=== PATIENT | female | born 1955 | race Caucasian/White ===

== ENCOUNTER 2021-05-07 08:32 | Outpatient (CLI) | payer MEDICARE, OTHER, SELFPAY ==
--- NOTE | ~2021-05-07 | DEXA_ITS ---
Bone Density Report Name: Fabiola Lee Age: 65 Sex: Female Ethnicity: White Date of : 1955 Indication: postmenopausal; height loss; Referring Provider: BENNIE, TAY Sanchez Study: Bone densitometry was performed. Exam Date: May 07, 2021 Accession number: [id number] Bone Density: Region BMD T-score Z-score Classification AP Spine (L1-L4) 0.984 -0.6 1.3 Normal Femoral Neck (Left) 0.660 -1.7 -0.1 Osteopenia Total Hip (Left) 0.814 -1.0 0.3 Normal Total Hip Bilateral Avg 0.818 -1.0 0.3 Osteopenia Femoral Neck (Right) 0.670 -1.6 0.0 Osteopenia Total Hip (Right) 0.821 -1.0 0.3 Normal World Health Organization criteria for BMD impression classify patients as: Normal (T-score at or above -1.0), Osteopenia (T-score between -1.0 and -2.5), or Osteoporosis (T-score at or below -2.5). 10-year Fracture Risk(1): Major Osteoporotic Fracture 9.4% Hip Fracture 1.2% Reported Risk Factors: [place] (), Neck BMD=0.670, BMI=28.3 (1) FRAX(R) Version 3.08. Fracture probability calculated for an untreated patient. Fracture probability may be lower if the patient has received treatment. Clinical Information Provided by Patient: Has used the following medications: Vitamin D Patient maximum height was 64 Menopause Age: 49 Drinks caffeinated beverages Onset of menses at age 9 Number of children 2 Impression: The patient has low bone mass, based on the Left Femoral Neck T-score. The patient has an estimated ten-year risk of hip fracture of 1.2% and an estimated ten-year risk of major fracture of 9.4%, based on the WHO FRAX algorithm. Discussion: BONE DENSITY IS LOW AT ONE OR MORE SKELETAL SITES. This patient's lowest T-score is low at one or more skeletal sites. It meets the World Health Organization's (WHO) criteria for ?low bone mass? (T-score between -1.0 and -2.5). The patient's 10-year risk of fracture as calculated by FRAX is less than the threshold where pharmacological therapy is recommended by the National Osteoporosis Foundation (NOF). However, all treatment decisions require clinical judgment and consideration of individual patient factors, including patient preferences, comorbidities, previous drug use, risk factors not captured in the FRAX model (e.g., frailty, falls, vitamin D deficiency, increased bone turnover, interval significant decline in bone density) and possible under or overestimation of fracture risk by FRAX. The patient should follow a healthful lifestyle (good nutrition with adequate calcium and vitamin D, and appropriate weight-bearing exercise). Follow-Up: Consider repeating this study in 2 to 3 years to reassess this patient's status, or sooner if there is some new clinical indication. Reported by: YAYO on 05/07/2021 8:57:00 AM.
== END 2021-05-07 08:33 | disposition home or self-care (01) ==
LOC: ANHIMG 08:37
PROVIDERS: PCP Family Medicine; Visit Provider Family Medicine
DX: Z78.0 Asymptomatic menopausal state (principal); M85.89 Other specified disorders of bone density and structure, multiple sites
CPT/HCPCS: 77080

== ENCOUNTER 2021-05-08 09:04 | Outpatient (CLI) | payer MEDICARE, OTHER, SELFPAY ==
--- NOTE | ~2021-05-08 | XR_ITS ---
EXAMINATION: XR lumbar spine 2-3V DATE: 05/08/2021 09:27 INDICATION: Low back pain TECHNIQUE: Anteroposterior and lateral views of the lumbar spine, and cone-down lateral view of the l umbosacral junction were obtained. COMPARISON: None. FINDINGS: There is lumbar levocurvature. There are 2 mm of retrolisthesis of L3 on L4 and 2 mm of ant erolisthesis of L4 on L5. The vertebral body heights are maintained. There is moderate loss of interv ertebral disc space height at L2-3 and L3-4 and mild intervertebral disc space loss throughout the re mainder of the lumbar spine. There is moderate facet osteoarthritis at L4-5 and L5-S1. No fracture is identified. Calcified atherosclerosis is noted. IMPRESSION: 1. Moderate lumbar spondylosis without acute findings. Reviewed, dictated and finalized at location B.
== END 2021-05-08 09:05 | disposition home or self-care (01) ==
LOC: ANHIMG 09:10
PROVIDERS: PCP Family Medicine; Visit Provider Family Medicine
DX: M54.5 Low back pain (principal); M47.816 Spondylosis without myelopathy or radiculopathy, lumbar region
CPT/HCPCS: 72100

== ENCOUNTER 2021-05-14 14:25 | Outpatient (CLI) | payer MEDICARE, OTHER, SELFPAY ==
--- NOTE | ~2021-05-14 | MM_ITS ---
EXAMINATION: MM screening tani BI w kristian HISTORY: Baseline screening mammogram TECHNIQUE: Craniocaudal and mediolateral oblique 3-D tomosynthesis images were obtained and synthetic 2-D images were generated. CAD analysis was submitted and interpreted. COMPARISON: None, baseline BREAST PARENCHYMAL COMPOSITION: There are scattered areas of fibroglandular density. FINDINGS: There is no evidence of suspicious mass, calcification, or architectural distortion to sugg est malignancy in either breast. IMPRESSION: 1. No mammographic evidence of malignancy. 2. Recommend routine screening mammography in one year. BI-RADS Category 1: Negative Reviewed, dictated and finalized at location A.
== END 2021-05-14 14:26 | disposition home or self-care (01) ==
LOC: ANHIMG 14:29
PROVIDERS: PCP Family Medicine; Visit Provider Family Medicine
DX: Z12.31 Encounter for screening mammogram for malignant neoplasm of breast (principal)
CPT/HCPCS: 77063; 77067

== ENCOUNTER 2022-06-19 11:28 | Outpatient (CLI) | payer MEDICARE, OTHER, SELFPAY ==
--- NOTE | ~2022-06-19 | XR_ITS ---
XR knee LT 3V 06/19/2022 11:59 Indication: Left knee pain Procedure: 3 views left knee Comparison: No prior studies for comparison. Findings: Moderate-severe tricompartment osteoarthritis of the left knee. No fracture, subluxation or dislocation. No significant joint effusion. No foreign bodies. Impression: 1: Moderate-severe osteoarthritis of the left knee. Reviewed, dictated and finalized at location A. Impression: 1: Moderate-severe osteoarthritis of the left knee.
--- NOTE | ~2022-06-19 | XR_ITS ---
XR knee RT 3V 06/19/2022 11:59 Indication: Right knee pain Procedure: 3 views right knee Comparison: No prior studies for comparison. Findings: Moderate tricompartment osteoarthritis of the right knee. No fracture, subluxation or dislo cation. No significant joint effusion. No foreign bodies. Impression: 1: Moderate tricompartment osteoarthritis of the right knee. Reviewed, dictated and finalized at location A. Impression: 1: Moderate tricompartment osteoarthritis of the right knee.
== END 2022-06-19 11:29 | disposition home or self-care (01) ==
PROVIDERS: PCP Family Medicine; Visit Provider Family Medicine
DX: M17.0 Bilateral primary osteoarthritis of knee (principal)
CPT/HCPCS: 73562

== ENCOUNTER → 2022-06-19 15:29 | Outpatient (CLI) | payer MEDICARE, OTHER, SELFPAY ==
--- NOTE | ~2022-06-19 | MR_ITS ---
EXAMINATION: MR lumbar spine wo con DATE: 06/19/2022 16:02 INDICATION: Degeneration of the lumbar intervertebral disc TECHNIQUE: Magnetic resonance imaging (MRI) of the lumbar spine was performed without intravenous con trast. Sequences included sagittal T2-weighted FSE, sagittal T2-weighted FS FSE, sagittal T1-weighted FSE, and axial T2-weighted FSE. COMPARISON: Lumbar spine radiographs dated 05/08/2021 FINDINGS: Minimal lumbar levocurvature. 2 mm retrolisthesis L3 on L4 and 1 mm anterolisthesis L4 on L5. Vertebr al body heights are normal. Tiny Schmorl's node along the superior endplate of L4 with larger Schmorl 's node with surrounding marrow edema at the inferior endplate of L3. Moderate disc height loss at T1 1-T12, L2-L3 and L3-L4. Associated fibrovascular degenerative endplate changes at the right side of L 2-L3. Mild disc height loss at T10-T11, T12-L1, L1-L2, L4-L5 and L5-S1. The conus medullaris terminat es at L1. There is normal signal in the caudal spinal cord. Paravertebral soft tissues are unremarkab le. The following disc levels are specifically discussed: T12-L1: Disc is mildly bulging. There is mild left and moderate right facet joint osteoarthritis. The re is no neural foraminal stenosis. There is mild central canal stenosis. L1-L2: Disc is bulging There is moderate left and mild to moderate right facet joint osteoarthritis. There is minimal bilateral neural foraminal stenosis. There is mild central canal stenosis. L2-L3: Disc is bulging. There is mild hypertrophy of the ligamentum flavum. There is mild right and m ild to moderate left facet joint osteoarthritis. There is mild to moderate bilateral neural foraminal stenosis. There is mild to moderate central canal stenosis. L3-L4: Disc is bulging. There is hypertrophy of the ligamentum flavum. There is mild to moderate bila teral facet joint osteoarthritis. There is moderate bilateral neural foraminal stenosis. There is mod erate to severe central canal stenosis. L4-L5: Disc is minimally bulging. There is hypertrophy of the ligamentum flavum. There is severe bila teral facet joint osteoarthritis. There is mild to moderate bilateral neural foraminal stenosis. Ther e is moderate to severe central canal stenosis. L5-S1: Annular fissure and small central disc extrusion with disc material extending 3 mm caudal to t he level of the superior endplate of S1. There is moderate right and severe left facet joint osteoart hritis. There is mild bilateral neural foraminal stenosis. There is no central canal stenosis. IMPRESSION: 1. Moderate to severe lumbar spondylosis. Reviewed, dictated and finalized at location A.
== END ==
PROVIDERS: PCP Family Medicine; Visit Provider Family Medicine
DX: M51.36 Other intervertebral disc degeneration, lumbar region (principal); M47.816 Spondylosis without myelopathy or radiculopathy, lumbar region
CPT/HCPCS: 72148

== ENCOUNTER 2025-01-04 07:27 | Outpatient (CLI) | payer MEDICARE, SELFPAY | END 2025-01-04 07:28 | disposition home or self-care (01) | PROVIDERS: PCP Family Medicine; Visit Provider Physician Assistant | DX: Z12.31 Encounter for screening mammogram for malignant neoplasm of breast (principal); M85.89 Other specified disorders of bone density and structure, multiple sites; Z78.0 Asymptomatic menopausal state | CPT/HCPCS: 77063; 77067; 77080 ==